=== PATIENT | male | born 1975 | race Caucasian/White ===

== ENCOUNTER 2020-05-04 10:16 | Emergency (ER) | payer OTHER ==
[~2020-05-04] VITALS: Ht 177.8 cm; Wt 133.8 kg
[2020-05-04 10:40] LABS: ABSOLUTE BASOPHILS 0.1 thou/uL (0.0-0.2); ABSOLUTE EOSINOPHILS 0.1 thou/uL (0.0-0.7); ABSOLUTE LYMPHOCYTES 2.7 thou/uL (0.8-5.3); ABSOLUTE MONOCYTES 0.6 thou/uL (0.0-1.2); ABSOLUTE NEUTROPHILS 7.5 thou/uL (1.6-8.1); BASOPHILS 0.5 %; EOSINOPHILS 0.6 %; HEMATOCRIT 41.7 % (42.0-52.0); HEMOGLOBIN 14.8 gm/dL (14.0-18.0); LYMPHOCYTES 24.5 %; MCH 31.8 pg (26.0-34.0); MCHC 35.4 g/dL (28.0-37.0); MCV 89.7 fL (80.0-100.0); MONOCYTES 5.6 %; MPV 7.4 fl. (7.2-11.1); NUCLEATED RBCS 0 /100WBC; PLATELET COUNT* 290 thou/uL (150-400); POLYS 68.8 %; RBC 4.65 mil/uL (4.50-6.00); RDW-CV 12.9 % (10.5-14.5)
[2020-05-04 10:44] LABS: CALCIUM 8.5 mg/dL (8.5-10.1); CREATININE 1.2 mg/dL (0.6-1.3)
[2020-05-04 10:49] LABS: ALBUMIN 3.6 g/dL (3.4-5.0); TOTAL BILIRUBIN 0.7 mg/dL (<0.1-1.0)
[2020-05-04 13:02] LABS: CSF GLUCOSE 37 mg/dl (40-70)
[2020-05-04 13:07] LABS: CSF CLARITY CLEAR; CSF COLOR XANTHOCHROMIC; VOLUME 8 ml
[2020-05-04 13:12] LABS: URINE BLOOD NEGATIVE (Negative); URINE CLARITY SL CLOUDY; URINE COLOR YELLOW; URINE GLUCOSE-RANDOM NEGATIVE (Negative); URINE KETONES TRACE (Negative); URINE LEUKOCYTES-REFLEX TRACE (Negative); URINE NITRITE-REFLEX NEGATIVE (Negative); URINE PROTEIN TRACE (Negative)
[2020-05-04 13:13] LABS: URINE BILIRUBIN 1+ (Negative)
[2020-05-04 13:16] LABS: ICTOTEST (BILI CONFIRMATORY) Negative (Negative)
[2020-05-04 13:18] LABS: CSF PROTEIN 278.1 mg/dl (15-45)
[2020-05-04 13:20] LABS: BACTERIA-REFLEX >30 Many /HPF (None Seen); CASTS None Seen /LPF (None Seen); CRYSTALS None Seen /LPF (None Seen); MUCUS >6 Heavy strn/LPF (None Seen); SQUAMOUS >10 Many /LPF (0-3); URINE RBC 0-2 Rare /HPF (0-2); URINE WBC-REFLEX 6-15 Few /HPF (0-5)
[2020-05-04 13:54] LABS: CSF LYMPHOCYTES 48 % (40-80); CSF MONONUCLEARS 36 % (15-45); CSF POLYS 16 % (0-6)
[2020-05-04 13:59] LABS: CSF WBC 326.25 /mm3 (0-10)
[2020-05-04 14:35] LABS: CSF RBC 225 /mm3
[2020-05-04 14:36] LABS: CSF CLARITY CLEAR; CSF COLOR XANTHOCHROMIC; VOLUME 8 ml
[2020-05-04 14:37] LABS: CSF RBC 300 /mm3; CSF WBC 322.5 /mm3 (0-10)
[2020-05-04 14:50] VITALS: BP 167/87
== END 2020-05-04 14:57 | disposition still patient (30) ==
LOC: M.ERS 10:16
PROVIDERS: Emergency Medicine Emergency Medical Services
DX: A87.9 Viral meningitis, unspecified (principal); Z88.1 Allergy status to other antibiotic agents

== ENCOUNTER → 2020-05-22 | Outpatient (CLI) | payer OTHER | END | disposition home or self-care (01) | LOC: M.MRI 08:06 | DX: B00.3 Herpesviral meningitis (principal) ==